=== PATIENT | female | born 1965 | race Caucasian/White ===

== ENCOUNTER 2019-02-27 19:21 | Inpatient (IN) ==
--- NOTE | 2019-02-27 19:43 | Emergency Department Note ---
Disposition Clinical Impression: Acute psychosis, Suicidal ideation, Homicidal ideation Disposition: Admitted As Inpatient Condition: Fair Time of Disposition: 00:27 Psych HPI - General Chief Complaint: ED Psychiatric Symptoms Stated Complaint: SI Time Seen by Provider: 02/27/19 19:38 Source: patient, EMS Mode of arrival: EMS Limitations: altered mental status Nursing Notes Reviewed: Yes Vital Signs Reviewed: Yes - History of Present Illness HPI Narrative: 53-year-old female presenting to [facility] ED for one day history of suicidal and homicidal ideation. Patient states that she attempted to kill herself today by taking an overdose of Xanax, Ativan, and gabapentin. Patient states that she is "filled with rage" and would like to kill her 4 sisters, her , and all men, including the physician's in room performing review of systems questioning. Patient admits to active auditory and visual hallucinations stating that she is seeing and hearing things moving around in the [place]. We will initiate psychiatric examination at this time, pat ient will be pink slipped, basic psychiatric labs pending evaluation by one a staff pending evaluation results. Upon my initial evaluation, my general impression is that the patient is likely intoxicated, actively hallucinating, psychotic, aggressive to questioning, she is otherwise awake, alert, oriented, engaged to conversation and answering questions appropriately. There are no overt lateralizing signs, the patient is in no acute distress; their skin appears to be normal in color, they are not pale, not cyanotic, and not diaphoretic, they are sitting up in hospital bed interacting appropriately with environment. Pt complaint: suicidal ideation If medical clearance, reason: intoxication Onset (ago): unknown History of similar episodes: Yes Improves with: medication Worsens with: alcohol, drug use Alleged intoxication: Yes Associated Psychiatric Symptoms: depression, suicidal ideation, homicidal ideation, auditory hallucinations, delusions Associated symptoms: Reports: denies other symptoms Traumatic symptoms: denies traumatic injury Treatments prior to arrival: none Self harm or harm to others: admits thoughts of self harm, has plan, admits thoughts of harming others, has acted on plan, intentional overdose - Related Data Home Medications Medication Instructions Recorded Confirmed ALPRAZolam [Xanax 1 MG Tablet] 1 mg PO QID PRN 10/13/18 10/13/18 Carvedilol [Coreg] 25 mg PO BID 10/13/18 10/13/18 FLUoxetine HCl [Prozac] 40 mg PO BID 10/13/18 10/13/18 Furosemide [Lasix] 40 mg PO DAILY 10/13/18 10/13/18 Gabapentin 600 mg PO QID 10/13/18 10/13/18 Hydrocodone/Acetaminophen [[place] 1 tab PO QID PRN 10/13/18 10/13/18 10-325 Tablet] Labetalol [Trandate] 100 mg PO DAILY 10/13/18 10/13/18 Rizatriptan Benzoate [Maxalt] 10 mg PO ONCE PRN MDD 2 DOSES/24 10/13/18 10/13/18 HOURS Simvastatin [Zocor] 20 mg PO DAILY 10/13/18 10/13/18 Tamsulosin HCl [Flomax] 0.4 mg PO BID 10/13/18 10/13/18 Previous Rx's Medication Instructions Recorded Budesonide/Formoterol 80/4.5 2 puff IH BID #1 hfa.aer.ad 10/15/18 [Symbicort 80/4.5] Levofloxacin [Levaquin] 750 mg PO DAILY #4 tablet 10/15/18 Nicotine Patch [Nicoderm] 21 mg TD DAILY #30 patch.td24 10/15/18 predniSONE [PredniSONE] 40 mg PO DAILY #10 tablet 10/15/18 Allergies Allergy/AdvReac Type Severity Reaction Status Date / Time Erythromycin Base AdvReac Hives Verified 10/13/18 22:03 Review of Systems: Patient admits current suicidal ideation and plans for self-harm stating that she would like to be allowed to take enough pills to kill herself. Patient admits recent drug ingestions stating that she took 20 gabapentin, 10 Valium and one or 2 Xanax 1 mg tablets,she denies any other traumatic injuries or attempts at self-harm. Patient admits past suicide attempts by drug overdose Patient has multiple prior hospitalizations for psychiatric evaluation and feels that she needs to be admitted to the hospital psychiatric department for further evaluation today. Patient admits homicidal ideation and states that she would like to kill all men, particularly saying that she would like to kill the resident physician asking her questions, she would also like to kill her 4 sisters. Patient admits auditory and visual hallucinations stating that she believes that there are voices talking to her from inside the [place] All systems ED: reviewed and negative except as stated. Review of Systems: As Per HPI Past Medical History - Past Medical History Medical history: Reports: COPD, hypertension, renal disease, other Surgical history: Reports: hysterectomy Psychiatric history: Reports: anxiety, bipolar, depression, schizophrenia YARD SWITCHER history: Reports: no YARD SWITCHER history - Social History Smoking Status: Current every day smoker Smokeless Tobacco Status: No Alcohol use: Reports: none Drug use: Reports: none Physical Exam See history of present illness for greater detail. Formal physical exam not performed that this time due to patient's aggression. - General Limitations: no limitations General appearance: alert, in no apparent distress Course Course Narrative: CBC, BMP, urinalysis, urine , urine toxicology, salicylate, ethanol, acetaminophen Psychiatric evaluation pending outcome of above stated evaluations. Vital Signs Temperature 98.2 F 02/27/19 19:23 Pulse Rate 77 02/27/19 19:23 Respiratory Rate 16 02/27/19 19:23 Blood Pressure 108/80 02/27/19 19:23 O2 Sat by Pulse Oximetry 96 02/27/19 19:23 Temperature 97.6 F 02/28/19 00:15 Pulse Rate 72 02/28/19 00:15 Respiratory Rate 16 02/28/19 00:15 Blood Pressure 112/66 02/28/19 00:15 O2 Sat by Pulse Oximetry 96 02/28/19 00:15 Oxygen Delivery Oxygen Delivery Room Air Psych - MDM Narrative Medical decision making narrative: Patient's urinalysis is positive for benzodiazepines and barbiturates with a mild elevation in acetaminophen level. Patient was cleared for psychiatric evaluation given otherwise negative laboratory analysis. Patient was evaluated by psychiatric services and determined to require admission to [facility] at this time. The patient is hemodynamically stable at the time of admission. - Lab Data Result diagrams: 02/27/19 19:52 02/27/19 19:52 Lab Results 02/27/19 02/27/19 02/27/19 Range/Units 19:52 19:52 19:52 WBC 9.0 (4.3-11.1) K/mcL RBC 4.37 (3.82-4.97) M/mcL Hgb 13.4 (11.5-15.4) g/dL Hct 41.0 (35.3-44.9) % MCV 93.8 (83.0-100.0) fL MCH 30.7 (28.0-33.3) pg MCHC 32.7 (31.6-35.5) g/dL RDW 14.2 (11.5-14.5) % Plt Count 220 (140-400) K/mcL MPV 10.5 (9.4-12.4) fL Immature Gran % 0.2 (0-4) % Seg Neutrophils % 47.3 % Lymphocytes % 39.2 % Monocytes % 8.6 % Eosinophils % 3.9 % Basophils % 0.8 % Neutrophils # 4.3 (1.6-8.9) K/mcL Lymphocytes # 3.5 (0.6-4.6) K/mcL Monocytes # 0.8 (0.0-1.3) K/mcL Eosinophils # 0.4 (0.0-0.6) K/mcL Basophils # 0.1 (0.0-0.2) K/mcL Sodium 140 (136-145) mEq/L Potassium 3.9 (3.5-5.1) mEq/L Chloride 104 (98-107) mEq/L Carbon Dioxide 24 (23-29) mEq/L BUN 15 (6-20) mg/dL Creatinine 0.84 (0.60-1.20) mg/dL Est GFR ( Amer) > 60 (> 60) Est GFR (Non-Af Amer) > 60 (> 60) BUN/Creatinine Ratio 18 (6-26) Glucose 94 (70-105) mg/dL Calculated Osmolality 291 (280-300) Calcium 9.0 (8.6-10.3) mg/dL Urine Color (Yellow) Urine Clarity (Clear) Urine pH (5.0-8.0) pH Units Ur Specific [place] (1.010-1.025) Urine Protein (Neg-Trace) mg/dL Urine Glucose (UA) (Normal) mg/dL Urine Ketones (Negative) mg/dL Urine Blood (Negative) Urine Nitrite (Negative) Urine Bilirubin (Negative) Urine Urobilinogen (Normal) mg/dL Ur Leukocyte Esterase (Negative) Urine Microscopic RBC (0-3) per hpf Urine Microscopic WBC (0-3) per hpf Ur Squamous Epith Cells (None-Few) per lpf Urine Bacteria (None-Few) per hpf Hyaline Casts (None-Few) per lpf Ur Culture Indicated? (NO) Urine Test (Negative) Salicylates < 2.5 L (15.0-30.0) mg/dL Urine Opiates Screen (Bjtygh=039) ng/mL Ur Buprenorphine Scrn (Cutoff=5) ng/mL Acetaminophen 24 H (10-20) mcg/mL Ur Barbiturates Screen (Claqst=741) ng/mL Ur Phencyclidine Scrn (Cutoff=25) ng/mL Ur Amphetamines Screen (Xlbqah=7065) ng/mL U Benzodiazepines Scrn (Knpvim=314) ng/mL Urine Cocaine Screen (Cutoff= 300) ng/mL U Marijuana (THC) Screen (Cutoff = 50) ng/mL Ur Drug Screen Interp Ethyl Alcohol < 10 (Less than 10) mg/dL 02/27/19 02/27/19 02/27/19 Range/Units 20:09 20:09 20:09 WBC (4.3-11.1) K/mcL RBC (3.82-4.97) M/mcL Hgb (11.5-15.4) g/dL Hct (35.3-44.9) % MCV (83.0-100.0) fL MCH (28.0-33.3) pg MCHC (31.6-35.5) g/dL RDW (11.5-14.5) % Plt Count (140-400) K/mcL MPV (9.4-12.4) fL Immature Gran % (0-4) % Seg Neutrophils % % Lymphocytes % % Monocytes % % Eosinophils % % Basophils % % Neutrophils # (1.6-8.9) K/mcL Lymphocytes # (0.6-4.6) K/mcL Monocytes # (0.0-1.3) K/mcL Eosinophils # (0.0-0.6) K/mcL Basophils # (0.0-0.2) K/mcL Sodium (136-145) mEq/L Potassium (3.5-5.1) mEq/L Chloride (98-107) mEq/L Carbon Dioxide (23-29) mEq/L BUN (6-20) mg/dL Creatinine (0.60-1.20) mg/dL Est GFR ( Amer) (> 60) Est GFR (Non-Af Amer) (> 60) BUN/Creatinine Ratio (6-26) Glucose (70-105) mg/dL Calculated Osmolality (280-300) Calcium (8.6-10.3) mg/dL Urine Color Yellow (Yellow) Urine Clarity Clear (Clear) Urine pH 5.5 (5.0-8.0) pH Units Ur Specific [place] 1.016 (1.010-1.025) Urine Protein Negative (Neg-Trace) mg/dL Urine Glucose (UA) Normal (Normal) mg/dL Urine Ketones Negative (Negative) mg/dL Urine Blood Small H (Negative) Urine Nitrite Negative (Negative) Urine Bilirubin Negative (Negative) Urine Urobilinogen Normal (Normal) mg/dL Ur Leukocyte Esterase Trace H (Negative) Urine Microscopic RBC 3-5 H (0-3) per hpf Urine Microscopic WBC 0-3 (0-3) per hpf Ur Squamous Epith Cells Many H (None-Few) per lpf Urine Bacteria None Seen (None-Few) per hpf Hyaline Casts None Seen (None-Few) per lpf Ur Culture Indicated? YES A (NO) Urine Test Negative (Negative) Salicylates (15.0-30.0) mg/dL Urine Opiates Screen Positive H (Qpjsfv=667) ng/mL Ur Buprenorphine Scrn Negative (Cutoff=5) ng/mL Acetaminophen (10-20) mcg/mL Ur Barbiturates Screen Positive H (Ijugnb=740) ng/mL Ur Phencyclidine Scrn Negative (Cutoff=25) ng/mL Ur Amphetamines Screen Negative (Lvnfpb=6405) ng/mL U Benzodiazepines Scrn Positive H (Hsnfos=492) ng/mL Urine Cocaine Screen Negative (Cutoff= 300) ng/mL U Marijuana (THC) Screen Negative (Cutoff = 50) ng/mL Ur Drug Screen Interp See Below Ethyl Alcohol (Less than 10) mg/dL Psychiatric Medical Clearance - Medical Clearance Checklist Medical History: No Social History Section defined Current Vitals: Last Vital Signs Temp 97.6 F 02/28/19 00:15 Pulse 72 02/28/19 00:15 Resp 16 02/28/19 00:15 BP 112/66 02/28/19 00:15 Pulse Ox 96 02/28/19 00:15 Psychiatric Lab Panel: Drug Levels and Toxicity 02/27/19 02/27/19 19:52 20:09 Urine Opiates Screen Positive H Acetaminophen 24 H Ur Barbiturates Screen Positive H Ur Phencyclidine Scrn Negative Ur Amphetamines Screen Negative U Benzodiazepines Scrn Positive H Urine Cocaine Screen Negative U Marijuana (THC) Screen Negative Ethyl Alcohol < 10 Abnormal Labs: Abnormal lab results Urine Blood Small (Negative) H 02/27/19 20:09 Ur Leukocyte Esterase Trace (Negative) H 02/27/19 20:09 Urine Microscopic RBC 3-5 per hpf (0-3) H 02/27/19 20:09 Ur Squamous Epith Cells Many per lpf (None-Few) H 02/27/19 20:09 Ur Culture Indicated? YES (NO) A 02/27/19 20:09 Salicylates < 2.5 mg/dL (15.0-30.0) L 02/27/19 19:52 Urine Opiates Screen Positive ng/mL (Buyryu=793) H 02/27/19 20:09 Acetaminophen 24 mcg/mL (10-20) H 02/27/19 19:52 Ur Barbiturates Screen Positive ng/mL (Nbbwfn=652) H 02/27/19 20:09 U Benzodiazepines Scrn Positive ng/mL (Frnjcz=900) H 02/27/19 20:09 Statement of Medical Clearance: I have evaluated the patient, reviewed diagnostic information, and certify that the patient's medical condition is sufficiently stable that transfer to the psychiatric unit does not pose a significant risk of deterioration.
[2019-02-27 20:12] LABS: Basophils # 0.1 K/mcL (0.0-0.2); Basophils % 0.8 %; Eosinophils # 0.4 K/mcL (0.0-0.6); Eosinophils % 3.9 %; Hemoglobin 13.4 g/dL (11.5-15.4); Immature Granulocytes % 0.2 % (0-4); Lymphocytes # 3.5 K/mcL (0.6-4.6); Lymphocytes % 39.2 %; Mean Corpuscular HGB Conc 32.7 g/dL (31.6-35.5); Mean Corpuscular Hemoglobin 30.7 pg (28.0-33.3); Mean Corpuscular Volume 93.8 fL (83.0-100.0); Mean Platelet Volume 10.5 fL (9.4-12.4); Monocytes # 0.8 K/mcL (0.0-1.3); Monocytes % 8.6 %; Neutrophils # 4.3 K/mcL (1.6-8.9); Platelet Count 220 K/mcL (140-400); Red Blood Count 4.37 M/mcL (3.82-4.97); Red Cell Distribution Width 14.2 % (11.5-14.5); Segmented Neutrophils % 47.3 %
[2019-02-27 20:20] LABS: Bilirubin,Urine Negative (Negative); Blood,Urine Small (Negative); Clarity,Urine Clear (Clear); Color,Urine Yellow (Yellow); Glucose,Urine (UA) Normal (Normal); Ketones,Urine Negative (Negative); Leukocyte Esterase,Urine Trace (Negative); Nitrite,Urine Negative (Negative); PH,Urine 5.5 pH Units (5.0-8.0); Protein,Urine Negative (Neg-Trace); Specific Gravity,Urine 1.016 (1.010-1.025); Urobilinogen,Urine Normal (Normal)
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
[2019-02-27 20:29] LABS: Bacteria,Urine None Seen per hpf (None-Few); Hyaline Casts,Urine None Seen per lpf (None-Few); Squamous Epithelial Cell,Urine Many per lpf (None-Few); WBC,Urine 0-3 per hpf (0-3)
[2019-02-27 20:32] LABS: Acetaminophen 24 mcg/mL (10-20); BUN/Creatinine Ratio 18 (6-26); Blood Urea Nitrogen 15 mg/dL (6-20); Carbon Dioxide 24 mEq/L (23-29); Chloride 104 mEq/L (98-107); Ethanol < 10 mg/dL (Less than 10); Glucose 94 mg/dL (70-105); Osmolality,Calculated 291 (280-300); Potassium 3.9 mEq/L (3.5-5.1); Sodium 140 mEq/L (136-145); eGFR For African Americans > 60 (> 60); eGFR For Non-African Americans > 60 (> 60)
[2019-02-27 21:04] LABS: Amphetamine Screen,Urine Negative ng/mL (Cutoff=1000); Barbiturate Screen,Urine Positive ng/mL (Cutoff=200); Benzodiazepines Screen,Urine Positive ng/mL (Cutoff=200); Cannabinoid Screen,Urine Negative ng/mL (Cutoff = 50); Cocaine Screen,Urine Negative ng/mL (Cutoff= 300); Opiate Screen,Urine Positive ng/mL (Cutoff=300); Phencyclidine Screen,Urine Negative ng/mL (Cutoff=25)
[2019-02-27] MEDS ORDERED: Nicotine 21 MG PATCH.TD24 TD ONE (22:16)
[2019-02-27] MEDS ORDERED: Ibuprofen 600 MG TABLET PO ONE (22:45)
[2019-02-27] MEDS ORDERED: *HR* LORazepam 2 MG/ML VIAL IM PRN (23:18)
[2019-02-27] MEDS ORDERED: *HR* LORazepam 1 MG TABLET PO PRN (23:18)
[2019-02-27] MEDS ORDERED: MOM Conc 10 ML UD.LIQ PO PRN (23:18)
[2019-02-27] MEDS ORDERED: Mag Hydrox/Al Hydrox/Simeth 30 ML UDC PO PRN (23:18)
[2019-02-27] MEDS ORDERED: Haloperidol Lactate 5 MG/ML VIAL IM PRN (23:18)
[2019-02-28] MEDS: traZODone 50 MG TABLET PO PRN ×2 (00:18→20:16)
[2019-02-28] MEDS: hydrOXYzine pamoate 25 MG CAPSULE PO PRN ×3 (00:18→20:17)
[2019-02-28] MEDS: Nicotine 21 MG PATCH.TD24 TD SCH (08:47)
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
[2019-02-28] MEDS ORDERED: ALPRAZolam 0.5 MG TABLET PO PRN (10:49)
[2019-02-28] MEDS: Furosemide 40 MG TABLET PO SCH (11:30)
[2019-02-28] MEDS: Gabapentin 300 MG CAPSULE PO SCH ×3 (11:30→20:14)
[2019-02-28] MEDS: *HR* HYDROcodone/Acet 10/325 mg TABLET PO PRN ×2 (12:34→18:40)
[2019-02-28] MEDS: Divalproex (12 HR) 500 MG TABLET PO SCH ×2 (13:59→20:16)
[2019-02-28] MEDS: FLUoxetine 20 MG CAPSULE PO SCH ×2 (13:59→20:17)
[2019-02-28] MEDS: Ibuprofen 400 MG TABLET PO PRN (17:25)
[2019-02-28] MEDS: ALPRAZolam 0.5 MG TABLET PO PRN ×2 (18:40→20:14)
[2019-02-28] MEDS ORDERED: FLUoxetine 20 MG CAPSULE PO SCH (21:00)
[2019-02-28] MEDS ORDERED: Divalproex (12 HR) 500 MG TABLET PO SCH (21:00)
[2019-03-01] MEDS: Budesonide/Formoterol 80/4.5 MDI IH SCH ×2 (01:49→09:30)
[2019-03-01] MEDS: ALPRAZolam 0.5 MG TABLET PO PRN ×2 (07:11→10:31)
[2019-03-01] MEDS: *HR* HYDROcodone/Acet 10/325 mg TABLET PO PRN (07:11)
[2019-03-01] MEDS: Furosemide 40 MG TABLET PO SCH (09:01)
[2019-03-01] MEDS: Divalproex (12 HR) 500 MG TABLET PO SCH (09:01)
[2019-03-01] MEDS: Gabapentin 300 MG CAPSULE PO SCH (09:01)
[2019-03-01] MEDS: FLUoxetine 20 MG CAPSULE PO SCH (09:01)
[2019-03-01] MEDS: Nicotine 21 MG PATCH.TD24 TD SCH (09:21)
--- NOTE | 2019-03-01 09:48 | Discharge Summary ---
Date of Encounter: 03/01/19 Time of Encounter: 07:30 Diagnosis - Discharge Diagnosis (1) Major depress dis, severe Status: Acute Medications - Discharge Medications Prescriptions: Divalproex (12 HR) [Depakote (12 HR)] 500 mg PO BID #30 tablet. Prazosin [Minipress] 1 mg PO HS #15 capsule traZODone [TraZODone] 50 mg PO HS PRN #15 tablet PRN Reason: Insomnia hydrOXYzine pamoate [Vistaril] 25 mg PO TID PRN #45 capsule PRN Reason: Anxiety ALPRAZolam [Xanax 1 MG Tablet] 1 mg PO QID PRN 10/13/18 [History] Carvedilol [Coreg] 25 mg PO BID 10/13/18 [History] FLUoxetine HCl [Prozac] 40 mg PO BID 10/13/18 [History] Furosemide [Lasix] 40 mg PO DAILY 10/13/18 [History] Gabapentin 600 mg PO QID 10/13/18 [History] Hydrocodone/Acetaminophen [[place] 10-325 Tablet] 1 tab PO QID PRN 10/13/18 [History] Labetalol [Trandate] 100 mg PO DAILY 10/13/18 [History] Rizatriptan Benzoate [Maxalt] 10 mg PO ONCE PRN MDD 2 DOSES/24 HOURS 10/13/18 [History] Simvastatin [Zocor] 20 mg PO DAILY 10/13/18 [History] Tamsulosin HCl [Flomax] 0.4 mg PO BID 10/13/18 [History] Potassium Chloride [K-Tab ER] 20 meq PO DAILY 02/28/19 [History] Divalproex (12 HR) [Depakote (12 HR)] 500 mg PO BID #30 tablet. 03/01/19 [Rx] Prazosin [Minipress] 1 mg PO HS #15 capsule 03/01/19 [Rx] hydrOXYzine pamoate [Vistaril] 25 mg PO TID PRN #45 capsule 03/01/19 [Rx] traZODone [TraZODone] 50 mg PO HS PRN #15 tablet 03/01/19 [Rx] Allergy/AdvReac Type Severity Reaction Status Date / Time Erythromycin Base AdvReac Hives Verified 10/13/18 22:03 Results Procedures and tests throughout hospitalization: Completed Lab Orders Category Date Time Status Acetaminophen Stat Lab 02/27/19 19:52 Completed Basic Metabolic Panel Stat Lab 02/27/19 19:52 Completed Complete Blood Count [HEME] Stat Lab 02/27/19 19:52 Completed Drug Screen, Urine [UCHEM] Stat Lab 02/27/19 20:09 Completed Ethanol Stat Lab 02/27/19 19:52 Completed Test Result, Urine [URIN] Stat Lab 02/27/19 20:09 Completed Salicylate Stat Lab 02/27/19 19:52 Completed Urinalysis Reflex Cult & Micro [URIN] Stat Lab 02/27/19 20:09 Completed Provider Date of admission: 02/27/19 22:51 Primary care physician: PCP NONE Discharging clinician: Pamela Mercado Psychiatry Exam - Constitutional Vitals: Temp Pulse Resp BP Pulse Ox 97.9 F 83 18 112/68 100 02/28/19 20:21 02/28/19 22:07 02/28/19 22:07 02/28/19 22:07 02/28/19 22:07 General appearance: age & developmentally appropriate, well-groomed, well- nourished - Musculoskeletal Gait: normal Station: relaxed Strength & Tone: normal for patient - Psychiatric Patient Orientation: Yes Person, Yes Time, Yes Place, Yes Circumstance Level of alertness: Alert Behavior: calm, cooperative Psychomotor activity: Normal Eye Contact: Maintains Eye Contact Mood Description: Euthymic/stable Patient description of mood: good Affect description: congruent with mood, full range Speech Volume: Normal Speech pattern: normal rate, normal rhythm, normal tone, fluent, spontaneous Language & Vocabulary: consistent with education Thought Process: Linear, Goal Oriented Thought Content: No Suicidal ideation, No Homicidal ideation, No Overt delusions Perceptual Disturbances: No Auditory hallucinations, No Visual hallucinations Attention Span Ability: Capable of Focused Attention Memory Description: Grossly Intact Patient Reliability: Reliable Historian Fund of knowledge: Yes abstraction ability, Yes aware of current events Intelligence Estimate: Average Judgment: Good Insight: Full Hospital Course Hospital course: Ms. Emerson is a 53 year old female who was admitted for suicidal and homicidal ideations. She has done well since she got here. She was started on Depakote and prazosin.Patient was educated of diagnosis and the risk-benefit side effects of this alternative treatment options and was monitored for responsiveness and side effects. Mood anxiety sleep and appetite interest improved as did future orientation. Self-harm thoughts subsided, thinking cleared, psychosis resolved, and mood stabilized. Patient was able to attend both individual and group therapy sessions as well as meet with the psychiatrist daily and urged to discuss any medication or treatment issues or other concerns. The patient was educated primarily by verbal means about their diagnosis and manifestations in their life. The option for treatment including group and individual therapy programming was offered to the patient in addition to the use of medications with all their potential risks, benefits, and side effects as well as the risks of not taking medication and non-adhereance were discussed with the patient at length. The patient was given the opportunity to ask questions and was noted to participate in the treatment in the planning process. The patient felt ready and eager to be discharged from the inpatient psychiatric unit to continue on with treatment as an outpatient. The patient agreed that is they were safe for this disposition. The patient was considered to be able to participate in informed consent and decision making with respect to medical, legal, and financial issues of the time of discharge. At the time of discharge the patient adamantly denied any concerns for lethality including suicidal or homicidal thoughts ideations or plans and was future oriented toward ongoing mental health care, medical follow-up and sobriety. Time spent discussing smoking cessation with patient: 3 to 10 minutes Does patient wish to continue nicotine replacement upon disc: No - Time Spent with Patient Total time spent providing and/or coordinating discharge services: 25 Less than 30 minutes Specific discharge activities: Interval history reviewed. Available labs reviewed . Psychotherapy provided. Patient had an opportunity to ask questions and address concerns. Patient was in agreement with the treatment plan. The risks benefits and side effects of medications were discussed with the patient, including alternatives and treatment. The patient was educated on the abstaining from any alcohol or illicit substances, following up with all scheduled appointments, and taking all medications as prescribed. Assessment and Plan - Patient/Caregiver Discharge Instructions Activity: resume usual activities as tolerated Diet: regular diet Additional Instructions: Continue current medications. Follow up with outpatient mental health. Encourage continued therapy in a group or individual setting. The patient was discharged to home. - Follow up Plan Follow up with: NONE,PCP [Primary Care Provider] - Functional capacity at discharge: independent ambulation Overall status at discharge: Stable Disposition: Home, Self-Care Quality - Multiple Antipsychotics Patient discharged on 2 or more antipsychotic medications: No Procedures - Procedures Procedures: Medication Management, Crisis Stabilization, Supportive Therapy, Group Therapy, Psychoeducational Therapy
[2019-03-01] MEDS: Ibuprofen 400 MG TABLET PO PRN (10:36)
[2019-03-01 12:51] VITALS: BP 112/77
== END 2019-03-01 11:00 | disposition home or self-care (01) | DRG 885 ==
LOC: EMEROOARM 19:21 → 1ANU 22:51
PROVIDERS: ADMIT Psychiatry & Neurology Psychiatry; ATTEND Psychiatry & Neurology Psychiatry

== ENCOUNTER 2020-07-01 15:44 | Inpatient (IN) ==
[2020-07-01] MEDS ORDERED: Vancomycin 1,250 MG/262.5 ML IV.SOLN IVPB ONE (16:03)
[2020-07-01] MEDS ORDERED: Piperacillin/Tazobactam 3.375 GM in 0.9 % Sodium Chloride Mini Bag 100 ML IVPB ONE (16:03)
[2020-07-01] MEDS: 0.9 % Sodium Chloride 1,000 ML IVC SCH ×2 (16:20→16:32)
[2020-07-01] MEDS ORDERED: Acetaminophen 650 MG RECTAL SUPP RC ONE (16:22)
[2020-07-01 16:38] LABS: ABG Base Excess -1 mEq/L (-2 to 3); ABG HCO3 24 mEq/L (21-27); ABG Oxygen Saturation 99 % (95-98); ABG PCO2 41 mmHg (35-45); ABG PH 7.37 pH Units (7.32-7.45); ABG PO2 137 mmHg (85-104); ABG TCO2 25 mEq/L (20-26)
[2020-07-01] MEDS ORDERED: Dexamethasone 4 MG/ML VIAL IVP ONE (16:40)
[2020-07-01 16:45] LABS: Bilirubin,Urine Negative (Negative); Blood,Urine Trace (Negative); Clarity,Urine Ex.Turbid (Clear); Color,Urine Yellow (Yellow); Glucose,Urine (UA) Normal (Normal); Hyaline Casts,Urine Many per lpf (None Seen); Ketones,Urine Negative (Negative); Leukocyte Esterase,Urine Negative (Negative); Mucus,Urine Few per lpf (None-Few); Nitrite,Urine Negative (Negative); Protein,Urine 30 mg/dL (Neg-Trace); RBC,Urine 0-3 per hpf (0-3); Specific Gravity,Urine 1.016 (1.010-1.025); Squamous Epithelial Cell,Urine Few per hpf (None-Few); WBC,Urine 0-3 per hpf (0-3)
[2020-07-01 16:57] LABS: INR 1.5; Prothrombin Time 16.6 Seconds (9.4-12.1)
[2020-07-01 17:00] LABS: Activated Partial Thrombo Time 30.3 Seconds (26.0-36.0)
[2020-07-01 17:11] LABS: Basophils % 0.2 %; Eosinophils # 0.1 K/mcL (0.0-0.6); Eosinophils % 0.5 %; Hemoglobin 8.7 g/dL (11.5-15.4); Immature Granulocytes % 0.8 % (0-4); Lymphocytes # 1.1 K/mcL (0.6-4.6); Lymphocytes % 9.9 %; Mean Corpuscular HGB Conc 31.1 g/dL (31.6-35.5); Mean Corpuscular Hemoglobin 27.5 pg (28.0-33.3); Mean Corpuscular Volume 88.6 fL (83.0-100.0); Mean Platelet Volume 10.8 fL (9.4-12.4); Monocytes # 1.1 K/mcL (0.0-1.3); Monocytes % 9.8 %; Neutrophils # 8.6 K/mcL (1.6-8.9); Platelet Count 183 K/mcL (140-400); Red Blood Count 3.16 M/mcL (3.82-4.97); Red Cell Distribution Width 15.6 % (11.5-14.5); Segmented Neutrophils % 78.8 %
[2020-07-01 17:13] LABS: Alanine Aminotransferase 7 Units/L (7-52); Albumin 3.2 g/dL (3.5-5.7); Alkaline Phosphatase 86 Units/L (34-104); Amphetamine Screen,Urine Negative ng/mL (Cutoff=1000); Aspartate Amino Transferase 13 Units/L (13-39); BUN/Creatinine Ratio 19 (6-26); Barbiturate Screen,Urine Negative ng/mL (Cutoff=200); Benzodiazepines Screen,Urine Positive ng/mL (Cutoff=200); Bilirubin,Direct 0.2 mg/dL (0.0-0.2); Bilirubin,Indirect 0.3 mg/dL (0.0-1.0); Bilirubin,Total 0.5 mg/dL (0.3-1.0); Blood Urea Nitrogen 17 mg/dL (6-20); Calcium 7.9 mg/dL (8.6-10.3); Cannabinoid Screen,Urine Negative ng/mL (Cutoff = 50); Carbon Dioxide 23 mEq/L (23-29); Chloride 104 mEq/L (98-107); Cocaine Screen,Urine Negative ng/mL (Cutoff= 300); Creatine Kinase 83 Units/L (30-223); Globulin 3.1 g/dL (2.4-3.5); Glucose 124 mg/dL (70-105); Opiate Screen,Urine Positive ng/mL (Cutoff=300); Osmolality,Calculated 283 (280-300); Phencyclidine Screen,Urine Negative ng/mL (Cutoff=25); Potassium 4.1 mEq/L (3.5-5.1); Sodium 135 mEq/L (136-145); Total Protein 6.3 g/dL (6.4-8.9); eGFR For African Americans > 60 (> 60); eGFR For Non-African Americans > 60 (> 60)
[2020-07-01 17:29] LABS: Ethanol < 10 mg/dL (Less than 10)
[2020-07-01 17:40] LABS: Adenovirus Not Detected (Not Detect); Bordetella Pertussis Not Detected (Not Detect); Chlamydophila pneumoniae Not Detected (Not Detect); Coronavirus 229E Not Detected (Not Detect); Coronavirus HKU1 Not Detected (Not Detect); Coronavirus NL63 Not Detected (Not Detect); Coronavirus OC43 Not Detected (Not Detect); Human Metapneumovirus Not Detected (Not Detect); Human Rhinovirus/Enterovirus Not Detected (Not Detect); Influenza A Subtype 2009 H1 Not Detected (Not Detect); Influenza B Not Detected (Not Detect); Mycoplasma pneumoniae Not Detected (Not Detect); Parainfluenza Virus 1 Not Detected (Not Detect); Parainfluenza Virus 2 Not Detected (Not Detect); Parainfluenza Virus 3 Not Detected (Not Detect); Parainfluenza Virus 4 Not Detected (Not Detect); Respiratory Syncytial Virus Not Detected (Not Detect); SARS-CoV-2 Not Detected (Not Detect)
[2020-07-01] MEDS: FentaNYL (PF) 1,000 MCG/100 ML IV.SOLN IVC SCH (18:24)
[2020-07-01] MEDS ORDERED: Doxycycline 100 MG in 0.9 % Sodium Chloride Mini Bag 100 ML IVPB ONE (19:01)
[2020-07-01] MEDS: Norepinephrine 4 MG/254 ML IV.SOLN IVC SCH (20:07)
[2020-07-01] MEDS ORDERED: Naloxone 0.4 MG/ML INJ IVP PRN (20:59)
[2020-07-01] MEDS ORDERED: Artificial Tears SOLN 15 ML BOTTLE BOTH EYES PRN (21:05)
[2020-07-01 21:47] LABS: ABG Base Excess -2 mEq/L (-2 to 3); ABG HCO3 24 mEq/L (21-27); ABG Oxygen Saturation 98 % (95-98); ABG PCO2 47 mmHg (35-45); ABG PH 7.33 pH Units (7.32-7.45); ABG PO2 115 mmHg (85-104); ABG TCO2 26 mEq/L (20-26); Blood Gas Modality ASSIST CONTROL; Blood Gas VT 450 cc
[2020-07-01] MEDS: Piperacillin/Tazobactam 3.375 GM in 0.9 % Sodium Chloride Mini Bag 100 ML IVPB SCH (23:52)
[2020-07-01] MEDS: *HR* Heparin 5,000 UNIT/ML VIAL SQ SCH (23:52)
[2020-07-02] MEDS: Artificial Tears SOLN 15 ML BOTTLE BOTH EYES SCH ×7 (00:08→23:10)
[2020-07-02] MEDS: FentaNYL (PF) 1,000 MCG/100 ML IV.SOLN IVC SCH ×3 (00:45→21:55)
[2020-07-02] MEDS ORDERED: Perflutren Lipid Microsphere 1.3 ML in 0.9 % Sodium Chloride 8.7 ML IVP PRN (01:16)
[2020-07-02 04:12] LABS: Basophils % 0.1 %; Hematocrit 32.8 % (35.3-44.9); Hemoglobin 9.9 g/dL (11.5-15.4); Immature Granulocytes % 0.5 % (0-4); Lymphocytes # 0.4 K/mcL (0.6-4.6); Lymphocytes % 5.6 %; Mean Corpuscular HGB Conc 30.2 g/dL (31.6-35.5); Mean Corpuscular Volume 89.4 fL (83.0-100.0); Mean Platelet Volume 11.1 fL (9.4-12.4); Monocytes # 0.4 K/mcL (0.0-1.3); Monocytes % 5.5 %; Neutrophils # 6.8 K/mcL (1.6-8.9); Platelet Count 210 K/mcL (140-400); Red Blood Count 3.67 M/mcL (3.82-4.97); Red Cell Distribution Width 15.7 % (11.5-14.5); Segmented Neutrophils % 88.3 %; White Blood Count 7.7 K/mcL (4.3-11.1)
[2020-07-02 04:34] LABS: BUN/Creatinine Ratio 19 (6-26); Blood Urea Nitrogen 11 mg/dL (6-20); Calcium 8.1 mg/dL (8.6-10.3); Carbon Dioxide 23 mEq/L (23-29); Chloride 110 mEq/L (98-107); Glucose 142 mg/dL (70-105); Magnesium 1.9 mg/dL (1.6-2.6); Osmolality,Calculated 292 (280-300); Potassium 3.8 mEq/L (3.5-5.1); Sodium 140 mEq/L (136-145); eGFR For African Americans > 60 (> 60); eGFR For Non-African Americans > 60 (> 60)
[2020-07-02 04:37] LABS: Troponin I 0.07 ng/mL (< 0.04)
[2020-07-02 04:41] LABS: ABG Base Excess 2 mEq/L (-2 to 3); ABG HCO3 28 mEq/L (21-27); ABG Oxygen Saturation 97 % (95-98); ABG PCO2 53 mmHg (35-45); ABG PH 7.33 pH Units (7.32-7.45); ABG PO2 101 mmHg (85-104); ABG TCO2 30 mEq/L (20-26); Blood Gas Modality ASSIST CONTROL; Blood Gas VT 450 cc
[2020-07-02] MEDS: Vancomycin 1,250 MG/262.5 ML IV.SOLN IVPB SCH ×2 (05:24→17:14)
[2020-07-02] MEDS: Doxycycline 100 MG in 0.9 % Sodium Chloride Mini Bag 100 ML IVPB SCH ×2 (06:12→17:54)
[2020-07-02 09:04] LABS: Adenovirus Not Detected (Not Detect); Bordetella Pertussis Not Detected (Not Detect); Chlamydophila pneumoniae Not Detected (Not Detect); Coronavirus 229E Not Detected (Not Detect); Coronavirus HKU1 Not Detected (Not Detect); Coronavirus NL63 Not Detected (Not Detect); Coronavirus OC43 Not Detected (Not Detect); Human Metapneumovirus Not Detected (Not Detect); Human Rhinovirus/Enterovirus Not Detected (Not Detect); Influenza A Subtype 2009 H1 Not Detected (Not Detect); Influenza B Not Detected (Not Detect); Mycoplasma pneumoniae Not Detected (Not Detect); Parainfluenza Virus 1 Not Detected (Not Detect); Parainfluenza Virus 2 Not Detected (Not Detect); Parainfluenza Virus 3 Not Detected (Not Detect); Parainfluenza Virus 4 Not Detected (Not Detect); Respiratory Syncytial Virus Not Detected (Not Detect); SARS-CoV-2 Not Detected (Not Detect)
[2020-07-02] MEDS: Piperacillin/Tazobactam 3.375 GM in 0.9 % Sodium Chloride Mini Bag 100 ML IVPB SCH ×3 (09:15→23:08)
[2020-07-02] MEDS: Pantoprazole 40 MG VIAL IVP SCH (09:16)
[2020-07-02] MEDS: Chlorhexidine Rinse 15 ML MOUTHWASH MM SCH ×2 (09:16→19:45)
[2020-07-02] MEDS: *HR* Heparin 5,000 UNIT/ML VIAL SQ SCH ×3 (09:16→23:10)
[2020-07-02] MEDS: Norepinephrine 4 MG/254 ML IV.SOLN IVC SCH (21:43)
[2020-07-03] MEDS: Artificial Tears SOLN 15 ML BOTTLE BOTH EYES SCH ×4 (03:05→15:18)
[2020-07-03] MEDS: FentaNYL (PF) 1,000 MCG/100 ML IV.SOLN IVC SCH (03:42)
[2020-07-03 04:46] LABS: ABG Base Excess 0 mEq/L (-2 to 3); ABG HCO3 26 mEq/L (21-27); ABG Oxygen Saturation 98 % (95-98); ABG PCO2 43 mmHg (35-45); ABG PH 7.38 pH Units (7.32-7.45); ABG PO2 100 mmHg (85-104); ABG TCO2 27 mEq/L (20-26); Blood Gas Modality ASSIST CONTROL; Blood Gas VT 450 cc
[2020-07-03] MEDS: Doxycycline 100 MG in 0.9 % Sodium Chloride Mini Bag 100 ML IVPB SCH (04:56)
[2020-07-03] MEDS: Vancomycin 1,250 MG/262.5 ML IV.SOLN IVPB SCH (04:56)
[2020-07-03] MEDS ORDERED: FentaNYL (PF) 1,000 MCG/100 ML IV.SOLN IVC SCH (06:23)
[2020-07-03 06:39] LABS: Basophils % 0.2 %; Eosinophils % 0.3 %; Hematocrit 31.1 % (35.3-44.9); Hemoglobin 9.7 g/dL (11.5-15.4); Immature Granulocytes % 0.3 % (0-4); Lymphocytes # 1.9 K/mcL (0.6-4.6); Lymphocytes % 29.5 %; Mean Corpuscular HGB Conc 31.2 g/dL (31.6-35.5); Mean Corpuscular Hemoglobin 28.5 pg (28.0-33.3); Mean Corpuscular Volume 91.5 fL (83.0-100.0); Mean Platelet Volume 10.8 fL (9.4-12.4); Monocytes # 0.5 K/mcL (0.0-1.3); Monocytes % 8.6 %; Neutrophils # 3.8 K/mcL (1.6-8.9); Platelet Count 211 K/mcL (140-400); Red Cell Distribution Width 15.9 % (11.5-14.5); Segmented Neutrophils % 61.1 %; White Blood Count 6.3 K/mcL (4.3-11.1)
[2020-07-03 07:03] LABS: BUN/Creatinine Ratio 20 (6-26); Blood Urea Nitrogen 12 mg/dL (6-20); Calcium 8.5 mg/dL (8.6-10.3); Carbon Dioxide 25 mEq/L (23-29); Chloride 111 mEq/L (98-107); Glucose 90 mg/dL (70-105); Magnesium 2.1 mg/dL (1.6-2.6); Osmolality,Calculated 295 (280-300); Potassium 3.9 mEq/L (3.5-5.1); Sodium 143 mEq/L (136-145); eGFR For African Americans > 60 (> 60); eGFR For Non-African Americans > 60 (> 60)
[2020-07-03] MEDS: Piperacillin/Tazobactam 3.375 GM in 0.9 % Sodium Chloride Mini Bag 100 ML IVPB SCH (07:48)
[2020-07-03] MEDS: Chlorhexidine Rinse 15 ML MOUTHWASH MM SCH (07:49)
[2020-07-03] MEDS: Pantoprazole 40 MG VIAL IVP SCH (07:49)
[2020-07-03] MEDS: *HR* Heparin 5,000 UNIT/ML VIAL SQ SCH ×3 (07:50→23:18)
[2020-07-03] MEDS ORDERED: Dexmedetomidine HCl 400 MCG/100 ML MLS IVC ONE (08:18)
[2020-07-03] MEDS ORDERED: Dexmedetomidine HCl 400 MCG/100 ML MLS IVC SCH (08:30)
[2020-07-03] MEDS ORDERED: ALPRAZolam 1 MG TABLET PO PRN ×2 (10:51→17:15)
[2020-07-03] MEDS ORDERED: FLUoxetine 20 MG CAPSULE PO SCH (10:52)
[2020-07-03] MEDS: Norepinephrine 4 MG/254 ML IV.SOLN IVC SCH (16:05)
[2020-07-03] MEDS ORDERED: Naloxone 0.4 MG/ML INJ IVP PRN (17:15)
[2020-07-03] MEDS ORDERED: Ampicillin/Sulbactam 3,000 MG in 0.9 % Sodium Chloride Mini Bag 100 ML IVPB SCH (18:00)
[2020-07-03] MEDS: Ampicillin/Sulbactam 3,000 MG in 0.9 % Sodium Chloride Mini Bag 100 ML IVPB SCH ×2 (18:18→23:18)
[2020-07-03] MEDS: Dexmedetomidine HCl 400 MCG/100 ML MLS IVC SCH (19:38)
[2020-07-03] MEDS: Doxycycline 100 MG CAPSULE PO SCH (20:16)
[2020-07-03] MEDS: FLUoxetine 20 MG CAPSULE PO SCH (20:16)
[2020-07-03] MEDS ORDERED: Doxycycline 100 MG CAPSULE PO SCH (21:00)
[2020-07-04 04:59] LABS: VBG Ionized Calcium 1.02 mmol/L (1.15-1.35)
[2020-07-04 05:03] LABS: Basophils % 0.3 %; Eosinophils # 0.2 K/mcL (0.0-0.6); Eosinophils % 2.4 %; Hematocrit 34.9 % (35.3-44.9); Hemoglobin 10.7 g/dL (11.5-15.4); Immature Granulocytes % 0.3 % (0-4); Lymphocytes # 3.3 K/mcL (0.6-4.6); Lymphocytes % 46.5 %; Mean Corpuscular HGB Conc 30.7 g/dL (31.6-35.5); Mean Corpuscular Hemoglobin 27.1 pg (28.0-33.3); Mean Corpuscular Volume 88.4 fL (83.0-100.0); Mean Platelet Volume 10.5 fL (9.4-12.4); Monocytes # 0.5 K/mcL (0.0-1.3); Monocytes % 6.7 %; Neutrophils # 3.1 K/mcL (1.6-8.9); Platelet Count 252 K/mcL (140-400); Red Blood Count 3.95 M/mcL (3.82-4.97); Red Cell Distribution Width 15.4 % (11.5-14.5); Segmented Neutrophils % 43.8 %; White Blood Count 7.1 K/mcL (4.3-11.1)
[2020-07-04 05:20] LABS: Alanine Aminotransferase 7 Units/L (7-52); Albumin 3.4 g/dL (3.5-5.7); Albumin/Globulin Ratio 0.9 (1.1-2.2); Alkaline Phosphatase 80 Units/L (34-104); Aspartate Amino Transferase 14 Units/L (13-39); BUN/Creatinine Ratio 13 (6-26); Bilirubin,Total 0.5 mg/dL (0.3-1.0); Blood Urea Nitrogen 7 mg/dL (6-20); Calcium 8.5 mg/dL (8.6-10.3); Carbon Dioxide 28 mEq/L (23-29); Chloride 104 mEq/L (98-107); Globulin 3.6 g/dL (2.4-3.5); Glucose 82 mg/dL (70-105); Magnesium 1.7 mg/dL (1.6-2.6); Osmolality,Calculated 291 (280-300); Phosphorous 3.4 mg/dL (2.7-4.5); Potassium 3.1 mEq/L (3.5-5.1); Sodium 142 mEq/L (136-145); eGFR For African Americans > 60 (> 60); eGFR For Non-African Americans > 60 (> 60)
[2020-07-04] MEDS: Ampicillin/Sulbactam 3,000 MG in 0.9 % Sodium Chloride Mini Bag 100 ML IVPB SCH ×2 (05:37→11:52)
[2020-07-04] MEDS: carvediloL 25 MG TABLET PO SCH ×2 (08:55→17:42)
[2020-07-04] MEDS: FLUoxetine 20 MG CAPSULE PO SCH (08:55)
[2020-07-04] MEDS: Doxycycline 100 MG CAPSULE PO SCH ×2 (08:56→20:09)
[2020-07-04] MEDS: *HR* Heparin 5,000 UNIT/ML VIAL SQ SCH ×2 (08:56→16:42)
[2020-07-04] MEDS: Dexmedetomidine HCl 400 MCG/100 ML MLS IVC SCH (19:47)
[2020-07-04] MEDS: ALPRAZolam 1 MG TABLET PO SCH (20:09)
[2020-07-05] MEDS: *HR* Heparin 5,000 UNIT/ML VIAL SQ SCH ×2 (00:05→07:18)
[2020-07-05] MEDS ORDERED: Amoxicillin/Clavulanate 500 MG TABLET PO SCH (08:00)
[2020-07-05] MEDS: ALPRAZolam 1 MG TABLET PO SCH (08:14)
[2020-07-05] MEDS: carvediloL 25 MG TABLET PO SCH (08:14)
[2020-07-05] MEDS: Doxycycline 100 MG CAPSULE PO SCH (08:14)
[2020-07-05] MEDS ORDERED: FLUoxetine 20 MG CAPSULE PO SCH (09:00)
[2020-07-05 09:23] LABS: Basophils % 0.3 %; Eosinophils # 0.1 K/mcL (0.0-0.6); Eosinophils % 1.5 %; Hematocrit 41.1 % (35.3-44.9); Immature Granulocytes % 0.6 % (0-4); Lymphocytes % 29.1 %; Mean Corpuscular HGB Conc 31.9 g/dL (31.6-35.5); Mean Corpuscular Hemoglobin 27.3 pg (28.0-33.3); Mean Corpuscular Volume 85.6 fL (83.0-100.0); Monocytes # 0.5 K/mcL (0.0-1.3); Monocytes % 7.6 %; Neutrophils # 4.1 K/mcL (1.6-8.9); Platelet Count 288 K/mcL (140-400); Red Cell Distribution Width 14.8 % (11.5-14.5); Segmented Neutrophils % 60.9 %; White Blood Count 6.7 K/mcL (4.3-11.1)
[2020-07-05] MEDS ORDERED: Nicotine 21 MG PATCH.TD24 TD SCH (09:30)
[2020-07-05 09:34] LABS: Hemoglobin 13.1 g/dL (11.5-15.4)
[2020-07-05 09:41] LABS: Alanine Aminotransferase 11 Units/L (7-52); Albumin 3.9 g/dL (3.5-5.7); Alkaline Phosphatase 94 Units/L (34-104); Aspartate Amino Transferase 16 Units/L (13-39); BUN/Creatinine Ratio 21 (6-26); Bilirubin,Total 0.6 mg/dL (0.3-1.0); Blood Urea Nitrogen 12 mg/dL (6-20); Calcium 9.4 mg/dL (8.6-10.3); Carbon Dioxide 29 mEq/L (23-29); Chloride 103 mEq/L (98-107); Glucose 80 mg/dL (70-105); Osmolality,Calculated 297 (280-300); Phosphorous 4.3 mg/dL (2.7-4.5); Potassium 3.7 mEq/L (3.5-5.1); Sodium 144 mEq/L (136-145); Total Protein 7.9 g/dL (6.4-8.9); eGFR For African Americans > 60 (> 60); eGFR For Non-African Americans > 60 (> 60)
[2020-07-05 11:04] VITALS: BP 110/79
== END 2020-07-05 11:34 | disposition left against medical advice (07) | DRG 871 ==
LOC: EMEROOARM 15:44 → ICNU 20:20 → SUATTDRO 20:20 → ICNU 21:05 → 3BNU 07-05 01:33
PROVIDERS: ADMIT Internal Medicine; ATTEND Internal Medicine

== ENCOUNTER 2022-01-21 08:23 | Inpatient (IN) ==
[2022-01-21] MEDS ORDERED: Ipratropium/Albuterol Neb 3 ML IH ONE (09:24)
[2022-01-21 09:44] LABS: Basophils # 0.1 K/mcL (0.0-0.2); Basophils % 0.5 %; Eosinophils # 0.2 K/mcL (0.0-0.6); Eosinophils % 1.5 %; Hemoglobin 12.5 g/dL (11.5-15.4); Immature Granulocytes % 0.9 % (0-4); Lymphocytes % 8.1 %; Mean Corpuscular HGB Conc 32.9 g/dL (31.6-35.5); Mean Corpuscular Hemoglobin 30.6 pg (28.0-33.3); Mean Corpuscular Volume 92.9 fL (83.0-100.0); Mean Platelet Volume 10.9 fL (9.4-12.4); Monocytes # 1.2 K/mcL (0.0-1.3); Monocytes % 9.6 %; Neutrophils # 10.1 K/mcL (1.6-8.9); Platelet Count 296 K/mcL (140-400); Red Blood Count 4.09 M/mcL (3.82-4.97); Red Cell Distribution Width 13.7 % (11.5-14.5); Segmented Neutrophils % 79.4 %; White Blood Count 12.8 K/mcL (4.3-11.1)
[2022-01-21 09:51] LABS: INR 1.5; Prothrombin Time 16.4 Seconds (9.4-12.1)
[2022-01-21 09:54] LABS: Activated Partial Thrombo Time 36.1 Seconds (26.0-36.0)
[2022-01-21 09:56] LABS: Alanine Aminotransferase 9 Units/L (7-52); Albumin 3.4 g/dL (3.5-5.7); Alkaline Phosphatase 80 Units/L (34-104); Aspartate Amino Transferase 10 Units/L (13-39); BUN/Creatinine Ratio 11 (6-26); Bilirubin,Direct 0.2 mg/dL (0.0-0.2); Bilirubin,Indirect 0.3 mg/dL (0.0-1.0); Bilirubin,Total 0.5 mg/dL (0.3-1.0); Blood Urea Nitrogen 9 mg/dL (6-20); Calcium 8.6 mg/dL (8.6-10.3); Carbon Dioxide 22 mEq/L (23-29); Chloride 106 mEq/L (98-107); Globulin 3.5 g/dL (2.4-3.5); Glucose 106 mg/dL (70-105); Osmolality,Calculated 285 (280-300); Potassium 3.5 mEq/L (3.5-5.1); Sodium 138 mEq/L (136-145); Total Protein 6.9 g/dL (6.4-8.9); Troponin I 0.03 ng/mL (< 0.04); eGFR For African Americans > 60 (> 60); eGFR For Non-African Americans > 60 (> 60)
[2022-01-21] MEDS ORDERED: Piperacillin/Tazobactam 3.375 GM in 0.9 % Sodium Chloride Mini Bag 100 ML IVPB ONE (10:54)
[2022-01-21] MEDS ORDERED: Iopamidol - 370 500 ML MLS IVP ONE (10:55)
[2022-01-21] MEDS ORDERED: Nicotine 14 MG PATCH.TD24 TD SCH (11:30)
[2022-01-21] MEDS ORDERED: 0.9 % Sodium Chloride 1,000 ML IV ONE (12:33)
[2022-01-21] MEDS ORDERED: Ondansetron 4 MG/2 ML VIAL IVP PRN (13:48)
[2022-01-21] MEDS ORDERED: Naloxone 0.4 MG/ML INJ IVP PRN (13:48)
[2022-01-21] MEDS ORDERED: Dextrose Gel 15 GM/37.5 ML TUBE PO PRN ×2 (14:09)
[2022-01-21] MEDS ORDERED: D5% in Water 1,000 ML IVC PRN (14:09)
[2022-01-21] MEDS ORDERED: *HR* Dextrose 50 % in Water (Syg) 50 ML SYRINGE IVP PRN (14:09)
[2022-01-21] MEDS ORDERED: Perflutren Lipid Microsphere 1.3 ML in 0.9 % Sodium Chloride 8.7 ML IVP PRN (14:16)
[2022-01-21] MEDS ORDERED: methylPREDNISolone 125 MG/2 ML VIAL IVP ONE (14:18)
[2022-01-21] MEDS: Budesonide/Formoterol 160/4.5 1 PUFF INH IH SCH ×2 (15:00→20:06)
[2022-01-21 15:11] LABS: Adenovirus Not Detected (Not Detect); Bordetella Pertussis Not Detected (Not Detect); Chlamydophila pneumoniae Not Detected (Not Detect); Coronavirus 229E Not Detected (Not Detect); Coronavirus HKU1 Not Detected (Not Detect); Coronavirus NL63 Not Detected (Not Detect); Coronavirus OC43 Not Detected (Not Detect); Human Metapneumovirus Not Detected (Not Detect); Human Rhinovirus/Enterovirus Not Detected (Not Detect); Influenza A Subtype 2009 H1 Not Detected (Not Detect); Influenza B Not Detected (Not Detect); Mycoplasma pneumoniae Not Detected (Not Detect); Parainfluenza Virus 1 Not Detected (Not Detect); Parainfluenza Virus 2 Not Detected (Not Detect); Parainfluenza Virus 3 Not Detected (Not Detect); Parainfluenza Virus 4 Not Detected (Not Detect); Respiratory Syncytial Virus Not Detected (Not Detect); SARS-CoV-2 Not Detected (Not Detect)
[2022-01-21] MEDS: Piperacillin/Tazobactam 3.375 GM in 0.9 % Sodium Chloride Mini Bag 100 ML IVPB SCH (15:35)
[2022-01-21] MEDS: Nicotine 21 MG PATCH.TD24 TD SCH (15:42)
[2022-01-21] MEDS: Ipratropium/Albuterol Neb 3 ML IH SCH ×3 (16:06→23:16)
[2022-01-21] MEDS: *HR* HYDROcodone/Acet 5/325 mg TABLET PO PRN (17:28)
[2022-01-21] MEDS: Insulin LISPRO 300 UNITS/3 ML VIAL SUBQ SCH ×2 (18:02→20:47)
[2022-01-21] MEDS: *HR* Heparin 5,000 UNIT/ML VIAL SQ SCH (21:03)
[2022-01-22] MEDS: Piperacillin/Tazobactam 3.375 GM in 0.9 % Sodium Chloride Mini Bag 100 ML IVPB SCH ×4 (00:28→22:54)
[2022-01-22 03:07] LABS: Basophils % 0.2 %; Eosinophils % 0.1 %; Hematocrit 35.6 % (35.3-44.9); Hemoglobin 11.3 g/dL (11.5-15.4); Immature Granulocytes % 1.2 % (0-4); Lymphocytes # 0.5 K/mcL (0.6-4.6); Lymphocytes % 3.8 %; Mean Corpuscular HGB Conc 31.7 g/dL (31.6-35.5); Mean Corpuscular Hemoglobin 29.2 pg (28.0-33.3); Mean Platelet Volume 10.2 fL (9.4-12.4); Monocytes # 0.6 K/mcL (0.0-1.3); Monocytes % 4.9 %; Neutrophils # 10.9 K/mcL (1.6-8.9); Platelet Count 274 K/mcL (140-400); Red Blood Count 3.87 M/mcL (3.82-4.97); Red Cell Distribution Width 13.8 % (11.5-14.5); Segmented Neutrophils % 89.8 %; White Blood Count 12.1 K/mcL (4.3-11.1)
[2022-01-22 03:26] LABS: BUN/Creatinine Ratio 15 (6-26); Blood Urea Nitrogen 11 mg/dL (6-20); Calcium 8.5 mg/dL (8.6-10.3); Carbon Dioxide 24 mEq/L (23-29); Chloride 106 mEq/L (98-107); Glucose 190 mg/dL (70-105); Osmolality,Calculated 288 (280-300); Potassium 3.5 mEq/L (3.5-5.1); Sodium 137 mEq/L (136-145); eGFR For African Americans > 60 (> 60); eGFR For Non-African Americans > 60 (> 60)
[2022-01-22] MEDS: *HR* HYDROcodone/Acet 5/325 mg TABLET PO PRN ×2 (03:31→11:53)
[2022-01-22] MEDS: Ipratropium/Albuterol Neb 3 ML IH SCH ×6 (04:32→23:23)
[2022-01-22] MEDS: *HR* Heparin 5,000 UNIT/ML VIAL SQ SCH ×3 (05:23→21:24)
[2022-01-22] MEDS: Budesonide/Formoterol 160/4.5 1 PUFF INH IH SCH ×2 (07:22→19:26)
[2022-01-22] MEDS: Nicotine 21 MG PATCH.TD24 TD SCH (07:50)
[2022-01-22] MEDS: Insulin LISPRO 300 UNITS/3 ML VIAL SUBQ SCH ×4 (08:07→21:24)
[2022-01-22 10:19] LABS: ABG Base Excess -1 mEq/L (-2 to 3); ABG HCO3 23 mEq/L (21-27); ABG Oxygen Saturation 94 % (95-98); ABG PCO2 38 mmHg (35-45); ABG PO2 70 mmHg (85-104); ABG TCO2 24 mEq/L (20-26)
[2022-01-22] MEDS ORDERED: Rizatriptan Benzoate [Maxalt Mlt] 10 MG Tab.Rapdis PO PRN (13:53)
[2022-01-22] MEDS: FLUoxetine 20 MG CAPSULE PO SCH (14:40)
[2022-01-22] MEDS: ALPRAZolam 1 MG TABLET PO SCH (14:40)
[2022-01-22] MEDS: Gabapentin 300 MG CAPSULE PO SCH ×2 (14:40→21:30)
[2022-01-22] MEDS: MethylPREDNISolone 40 MG/ML VIAL IVP SCH ×2 (14:41→22:53)
[2022-01-22] MEDS: carvediloL 25 MG TABLET PO SCH (18:33)
[2022-01-22] MEDS: risperiDONE 0.25 MG TABLET PO SCH (18:33)
[2022-01-23] MEDS: Ipratropium/Albuterol Neb 3 ML IH SCH ×6 (03:34→23:07)
[2022-01-23 04:28] LABS: Basophils % 0.1 %; Hemoglobin 11.5 g/dL (11.5-15.4); Immature Granulocytes % 1.8 % (0-4); Lymphocytes # 0.6 K/mcL (0.6-4.6); Lymphocytes % 5.1 %; Mean Corpuscular HGB Conc 31.1 g/dL (31.6-35.5); Mean Corpuscular Hemoglobin 28.8 pg (28.0-33.3); Mean Corpuscular Volume 92.7 fL (83.0-100.0); Mean Platelet Volume 10.3 fL (9.4-12.4); Monocytes # 0.5 K/mcL (0.0-1.3); Neutrophils # 10.8 K/mcL (1.6-8.9); Nucleated Red Blood Cells 0.2 /100 WBC (0); Platelet Count 331 K/mcL (140-400); Red Blood Count 3.99 M/mcL (3.82-4.97); Red Cell Distribution Width 13.8 % (11.5-14.5); White Blood Count 12.1 K/mcL (4.3-11.1)
[2022-01-23 04:49] LABS: BUN/Creatinine Ratio 22 (6-26); Blood Urea Nitrogen 17 mg/dL (6-20); Calcium 8.6 mg/dL (8.6-10.3); Carbon Dioxide 24 mEq/L (23-29); Chloride 105 mEq/L (98-107); Glucose 316 mg/dL (70-105); Magnesium 2.1 mg/dL (1.6-2.6); Osmolality,Calculated 300 (280-300); Phosphorous 2.5 mg/dL (2.7-4.5); Potassium 3.4 mEq/L (3.5-5.1); Sodium 138 mEq/L (136-145); eGFR For African Americans > 60 (> 60); eGFR For Non-African Americans > 60 (> 60)
[2022-01-23] MEDS: *HR* Heparin 5,000 UNIT/ML VIAL SQ SCH ×3 (05:33→21:47)
[2022-01-23] MEDS: Budesonide/Formoterol 160/4.5 1 PUFF INH IH SCH ×2 (07:53→19:42)
[2022-01-23] MEDS: Nicotine 21 MG PATCH.TD24 TD SCH (08:38)
[2022-01-23] MEDS: ALPRAZolam 1 MG TABLET PO SCH (08:38)
[2022-01-23] MEDS: FLUoxetine 20 MG CAPSULE PO SCH (08:38)
[2022-01-23] MEDS: amLODIPine 5 MG TABLET PO SCH (08:39)
[2022-01-23] MEDS: risperiDONE 0.25 MG TABLET PO SCH (08:39)
[2022-01-23] MEDS: carvediloL 25 MG TABLET PO SCH ×2 (08:39→16:15)
[2022-01-23] MEDS: Gabapentin 300 MG CAPSULE PO SCH ×3 (08:39→21:45)
[2022-01-23] MEDS: MethylPREDNISolone 40 MG/ML VIAL IVP SCH ×3 (08:40→23:38)
[2022-01-23] MEDS: Piperacillin/Tazobactam 3.375 GM in 0.9 % Sodium Chloride Mini Bag 100 ML IVPB SCH ×3 (08:40→23:37)
[2022-01-23] MEDS: Insulin LISPRO 300 UNITS/3 ML VIAL SUBQ SCH ×4 (08:49→21:47)
[2022-01-23] MEDS ORDERED: Furosemide 20 MG/2 ML VIAL IVP ONE (11:17)
[2022-01-23] MEDS: *HR* Acetaminophen w/Cod 300-30 mg 1 TAB TABLET PO PRN ×2 (16:32→23:42)
[2022-01-24] MEDS: Ipratropium/Albuterol Neb 3 ML IH SCH ×5 (03:58→20:21)
[2022-01-24] MEDS: *HR* Heparin 5,000 UNIT/ML VIAL SQ SCH ×2 (05:41→14:08)
[2022-01-24 05:48] LABS: Basophils % 0.2 %; Hematocrit 38.9 % (35.3-44.9); Hemoglobin 12.6 g/dL (11.5-15.4); Immature Granulocytes % 1.5 % (0-4); Lymphocytes # 0.9 K/mcL (0.6-4.6); Lymphocytes % 8.9 %; Mean Corpuscular HGB Conc 32.4 g/dL (31.6-35.5); Mean Corpuscular Hemoglobin 29.2 pg (28.0-33.3); Mean Corpuscular Volume 90.3 fL (83.0-100.0); Mean Platelet Volume 9.9 fL (9.4-12.4); Monocytes # 0.3 K/mcL (0.0-1.3); Monocytes % 3.4 %; Neutrophils # 8.6 K/mcL (1.6-8.9); Platelet Count 358 K/mcL (140-400); Red Blood Count 4.31 M/mcL (3.82-4.97); Red Cell Distribution Width 13.4 % (11.5-14.5)
[2022-01-24 06:11] LABS: BUN/Creatinine Ratio 26 (6-26); Blood Urea Nitrogen 16 mg/dL (6-20); Carbon Dioxide 28 mEq/L (23-29); Chloride 101 mEq/L (98-107); Glucose 248 mg/dL (70-105); Magnesium 2.2 mg/dL (1.6-2.6); Osmolality,Calculated 299 (280-300); Phosphorous 2.7 mg/dL (2.7-4.5); Potassium 3.3 mEq/L (3.5-5.1); Sodium 140 mEq/L (136-145); eGFR For African Americans > 60 (> 60); eGFR For Non-African Americans > 60 (> 60)
[2022-01-24] MEDS: Budesonide/Formoterol 160/4.5 1 PUFF INH IH SCH ×2 (07:14→20:21)
[2022-01-24] MEDS: risperiDONE 0.25 MG TABLET PO SCH (08:04)
[2022-01-24] MEDS: Insulin LISPRO 300 UNITS/3 ML VIAL SUBQ SCH ×2 (08:04→13:04)
[2022-01-24] MEDS: carvediloL 25 MG TABLET PO SCH (08:05)
[2022-01-24] MEDS: FLUoxetine 20 MG CAPSULE PO SCH (08:05)
[2022-01-24] MEDS: amLODIPine 5 MG TABLET PO SCH (08:05)
[2022-01-24] MEDS: ALPRAZolam 1 MG TABLET PO SCH (08:05)
[2022-01-24] MEDS: Gabapentin 300 MG CAPSULE PO SCH ×2 (08:05→14:08)
[2022-01-24] MEDS: Piperacillin/Tazobactam 3.375 GM in 0.9 % Sodium Chloride Mini Bag 100 ML IVPB SCH (08:06)
[2022-01-24] MEDS: MethylPREDNISolone 40 MG/ML VIAL IVP SCH (08:07)
[2022-01-24] MEDS: Nicotine 21 MG PATCH.TD24 TD SCH (08:08)
[2022-01-24] MEDS: *HR* Acetaminophen w/Cod 300-30 mg 1 TAB TABLET PO PRN ×2 (08:30→14:31)
[2022-01-24] MEDS ORDERED: Furosemide 20 MG/2 ML VIAL IVP ONE (09:30)
[2022-01-24 10:48] VITALS: BP 149/89; PULSE 66; TEMP 96.9; O2SAT 90
[2022-01-24] MEDS ORDERED: MethylPREDNISolone 40 MG/ML VIAL IVP SCH (18:00)
== END 2022-01-24 16:30 | disposition left against medical advice (07) | DRG 871 ==
LOC: EMEROOARM 08:23 → 3NENU 08:23 → SUATTDRO 13:00 → 3NENU 13:36 → SUATTDRO 15:06
PROVIDERS: ADMIT Internal Medicine; ATTEND Internal Medicine